=== PATIENT | female | born 1990 | race Caucasian/White ===

== ENCOUNTER 2021-08-25 10:26 | Inpatient (IN) | payer MEDICAID, OTHER ==
[~2021-08-25] VITALS: Ht 162.6 cm; Wt 74.8 kg
[2021-08-25] MEDS ORDERED: SODIUM CHLORIDE 0.9% 1,000 ML IV ONE (10:45)
[2021-08-25 11:17] LABS: CLARITY URINE CLEAR (CLEAR); COLOR URINE YELLOW (YELLOW); KETONES URINE NEGATIVE (NEGATIVE); LEUKOCYTE ESTERASE URINE NEGATIVE (NEGATIVE); NITRITE URINE NEGATIVE (NEGATIVE); OCCULT BLOOD URINE 2+ (NEGATIVE); PH URINE 8.5 (4.5-8.0); PROTEIN URINE NEGATIVE (NEGATIVE); SPECIFIC GRAVITY URINE 1.013 (1.005-1.030); UROBILINOGEN URINE 0.2 E.U./dL (0.2-1.0)
[2021-08-25 11:37] LABS: CHLORIDE 105 mEq/L (98-107)
[2021-08-25 11:39] LABS: BASOPHILS % 0.6 % (0.0-2.0); EOSINOPHILS % 0.4 % (0.0-5.0); HEMOGLOBIN. 12.5 g/dL (12.0-16.0); LYMPHOCYTES % 18.2 % (20.0-50.0); MEAN CORPUSCULAR HEMOGLOBIN 30.8 pg (28.0-32.0); MEAN CORPUSCULAR VOLUME 88.2 fL (81.0-99.0); MEAN PLATELET VOLUME 9.9 fl (7.4-10.4); MONOCYTES % 5.1 % (2.0-8.0); NEUTROPHILS % 75.7 % (40.0-76.0); PLATELET 266 x1000/uL (130-400); RED BLOOD CELL COUNT 4.08 mill/uL (4.2-5.4); RED CELL DISTRIBUTION WIDTH 13.6 % (11.6-14.6)
[2021-08-25 12:00] LABS: B-HCG QUANTITATIVE 29950 mIU/mL (<3)
[2021-08-25 12:06] LABS: PROTHROMBIN TIME 10.7 sec (9.6-11.0)
[2021-08-25] MEDS ORDERED: ROCURONIUM BROMIDE 10MG/ML VIAL 5ML IV ONE (15:22)
[2021-08-25] MEDS ORDERED: NEOSTIGMINE METHYLSULFATE 1MG/ML 10 ML VIAL ONE (15:22)
[2021-08-25] MEDS ORDERED: FENTANYL CITRATE/PF 50MCG/ML 2ML VIAL ONE (15:22)
[2021-08-25] MEDS ORDERED: GLYCOPYRROLATE 0.2 MG/ML 2ML VIAL ONE ×2 (15:23→16:41)
[2021-08-25] MEDS ORDERED: MIDAZOLAM HCL 2 MG/2 ML VIAL ONE (15:23)
[2021-08-25] MEDS ORDERED: PROPOFOL 200MG/20ML VIAL IV ONE (15:23)
[2021-08-25] MEDS ORDERED: MEPERIDINE HCL/PF 25MG/ML CPJ IV PRN (15:30)
[2021-08-25] MEDS ORDERED: HYDROMORPHONE HCL/PF 2MG/ML CPJ IV PRN (15:30)
[2021-08-25] MEDS ORDERED: ONDANSETRON HCL 4MG/2ML INJ IV PRN ×2 (15:30→17:00)
[2021-08-25] MEDS ORDERED: LABETALOL 5MG/ML SYR 20 MG/4 ML SYRINGE IV PRN (15:30)
[2021-08-25] MEDS ORDERED: DEXAMETHASONE 4MG/ML 1ML VIAL ONE (15:30)
[2021-08-25] MEDS ORDERED: ONDANSETRON HCL 4MG/2ML INJ ONE ×2 (15:30→18:04)
[2021-08-25] MEDS ORDERED: MORPHINE SULFATE 4 MG/ML CPJ (NOT FOR IM USE) IV PRN (17:00)
[2021-08-25] MEDS ORDERED: HYDROMORPHONE HCL/PF 2MG/ML CPJ ONE (18:04)
[2021-08-25 21:00] VITALS: BP 96/57
[2021-08-25] MEDS ORDERED: NALOXONE HCL 0.4MG/ML VIAL IV PRN (21:15)
[2021-08-25] MEDS: LACTATED RINGERS 1,000 ML IV SCH (21:21)
[2021-08-25] MEDS: MORPHINE SULFATE 2 MG/ML CPJ (NOT FOR IM USE) IV PRN (21:38)
[2021-08-26] VITALS: BP 94/59
[2021-08-26 04:00] VITALS: BP 90/57
[2021-08-26] MEDS: LACTATED RINGERS 1,000 ML IV SCH ×3 (04:35→21:08)
[2021-08-26] MEDS: MORPHINE SULFATE 2 MG/ML CPJ (NOT FOR IM USE) IV PRN (04:51)
[2021-08-26] MEDS ORDERED: IBUPROFEN 800MG TABLET PO PRN (07:45)
[2021-08-26 08:00] VITALS: BP 100/58
[2021-08-26] MEDS: HYDROCODONE/ACETAMINOPHEN 5/325MG TABLET PO PRN ×3 (09:42→21:16)
[2021-08-26 12:00] VITALS: BP 94/57
[2021-08-26 16:00] VITALS: BP 105/62
[2021-08-26 17:31] LABS: BASOPHILS % 0.4 % (0.0-2.0); EOSINOPHILS % 0.4 % (0.0-5.0); HEMOGLOBIN. 11.3 g/dL (12.0-16.0); LYMPHOCYTES % 23.7 % (20.0-50.0); MEAN CORPUSCULAR HEMOGLOBIN 29.9 pg (28.0-32.0); MEAN CORPUSCULAR VOLUME 89.6 fL (81.0-99.0); MEAN PLATELET VOLUME 10.6 fl (7.4-10.4); MONOCYTES % 5.8 % (2.0-8.0); NEUTROPHILS % 69.7 % (40.0-76.0); PLATELET 269 x1000/uL (130-400); RED CELL DISTRIBUTION WIDTH 13.6 % (11.6-14.6)
[2021-08-26 20:00] VITALS: BP 101/51
[2021-08-27] VITALS: BP 83/40
[2021-08-27 04:00] VITALS: BP 94/62
[2021-08-27] MEDS: LACTATED RINGERS 1,000 ML IV SCH ×3 (05:06→21:00)
[2021-08-27 08:00] VITALS: BP 96/60
[2021-08-27] MEDS: HYDROCODONE/ACETAMINOPHEN 5/325MG TABLET PO PRN (10:31)
[2021-08-27 12:00] VITALS: BP 104/69
[2021-08-27 16:00] VITALS: BP 99/67
[2021-08-27 20:00] VITALS: BP 98/67
[2021-08-28] VITALS: BP 103/61
[2021-08-28 04:00] VITALS: BP 100/61
[2021-08-28] MEDS: LACTATED RINGERS 1,000 ML IV SCH (05:00)
[2021-08-28 08:00] VITALS: BP 103/69
[2021-08-28 12:00] VITALS: BP 105/70
[2021-08-28] MEDS ORDERED: MULT-1116 MT (12:10)
[2021-08-28] MEDS ORDERED: FERR325T6 MT (12:10)
[2021-08-28] MEDS ORDERED: IBUP-2030 PO (12:10)
[2021-08-28 13:30] VITALS: BP 103/69
== END 2021-08-28 14:46 | disposition home or self-care (01) | DRG 547 ==
LOC: ER 10:26 → 6EST 12:15 → ER 15:39 → SUPCPDRO 16:52 → CANBEDREQ 17:15 → 6EST 20:53
PROVIDERS: ADMIT Obstetrics & Gynecology; ATTEND Obstetrics & Gynecology
PROC: 0UB60ZZ Excision of Left Fallopian Tube, Open Approach (ICD-10-PCS; principal; 2021-08-25)
DX: O00.102 Left tubal pregnancy without intrauterine pregnancy (principal); K66.1 Hemoperitoneum; M54.50 Low back pain, unspecified; O26.899 Other specified pregnancy related conditions, unspecified trimester; Z20.822 Contact with and (suspected) exposure to COVID-19
CPT/HCPCS: 36415; 76801; 80053; 81003; 84702; 85025; 86850; 86900; 87426; 88305; 99285; J1100; J1170; J2250; J2270; J2405; J2704; J2710; J3010; J3490; J7030; J7120

== ENCOUNTER 2021-08-31 18:38 | Emergency (ER) | payer MEDICAID ==
[~2021-08-31] VITALS: Ht 162.6 cm; Wt 80.0 kg
[~2021-08-31 18:38] MED LIST: FERR325T6 MT; IBUP-2030 PO; MULT-1116 MT
[2021-08-31 23:51] LABS: BASOPHILS % 0.8 % (0.0-2.0); EOSINOPHILS % 2.3 % (0.0-5.0); HEMOGLOBIN. 11.9 g/dL (12.0-16.0); LYMPHOCYTES % 28.9 % (20.0-50.0); MEAN CORPUSCULAR HEMOGLOBIN 30.6 pg (28.0-32.0); MEAN CORPUSCULAR VOLUME 89.8 fL (81.0-99.0); MEAN PLATELET VOLUME 9.7 fl (7.4-10.4); MONOCYTES % 3.8 % (2.0-8.0); NEUTROPHILS % 64.2 % (40.0-76.0); PLATELET 335 x1000/uL (130-400); RED CELL DISTRIBUTION WIDTH 13.3 % (11.6-14.6)
[2021-09-01 00:08] LABS: CHLORIDE 108 mEq/L (98-107)
[2021-09-01 00:21] LABS: B-HCG QUANTITATIVE 454 mIU/mL (<3)
[2021-09-01 03:20] VITALS: BP 129/78
[2021-09-01] MEDS ORDERED: IOHEXOL-350 100 ML BOTTLE ONE (03:31)
== END 2021-09-01 03:41 | disposition home or self-care (01) ==
LOC: ER 18:38
DX: D64.9 Anemia, unspecified (principal); F41.9 Anxiety disorder, unspecified; R00.2 Palpitations; Z98.890 Other specified postprocedural states
CPT/HCPCS: 36415; 71275; 80053; 84702; 85025; 85379; 86850; 86900; 86901; 99285; Q9967; 99284

== ENCOUNTER 2023-12-12 08:47 | Emergency (ER) | payer MEDICAID ==
[~2023-12-12] VITALS: Ht 157.5 cm; Wt 81.6 kg
[2023-12-12 09:15] VITALS: O2SAT 100
[2023-12-12 10:02] LABS: CLARITY URINE CLEAR (CLEAR); COLOR URINE YELLOW (YELLOW); GLUCOSE URINE NEGATIVE (NEGATIVE); KETONES URINE NEGATIVE (NEGATIVE); LEUKOCYTE ESTERASE URINE NEGATIVE (NEGATIVE); NITRITE URINE NEGATIVE (NEGATIVE); OCCULT BLOOD URINE TRACE (NEGATIVE); PH URINE 6.5 (4.5-8.0); PROTEIN URINE NEGATIVE (NEGATIVE); SPECIFIC GRAVITY URINE 1.005 (1.005-1.030); UROBILINOGEN URINE 0.2 E.U./dL (0.2-1.0)
[2023-12-12] MEDS ORDERED: PHEN-815 MT (10:47)
[2023-12-12 11:15] VITALS: BP 121/78; PULSE 79; RESP 16; TEMP 98.1
[2023-12-12 12:15] LABS: BACTERIA URINE TRACE; RBC URINE 0-2 /hpf (0-2); SQUAMOUS EPITHELIAL CELL URINE 1+ /lpf (RARE/1+); WBC URINE NONE SEEN /hpf (0-2)
== END 2023-12-12 11:17 | disposition home or self-care (01) ==
LOC: ER 08:47
DX: R30.0 Dysuria (principal)
CPT/HCPCS: 81003; 81025; 99283

== ENCOUNTER 2024-06-16 14:58 | Emergency (ER) | payer MEDICAID ==
[~2024-06-16] VITALS: Ht 165.1 cm; Wt 82.0 kg
[~2024-06-16 14:58] MED LIST changes: +PHEN-815 MT
[2024-06-16 15:00] VITALS: BP 132/82; PULSE 95; TEMP 98.6; O2SAT 100
[2024-06-16 17:12] LABS: CLARITY URINE CLEAR (CLEAR); COLOR URINE YELLOW (YELLOW); GLUCOSE URINE NEGATIVE (NEGATIVE); KETONES URINE NEGATIVE (NEGATIVE); LEUKOCYTE ESTERASE URINE NEGATIVE (NEGATIVE); NITRITE URINE NEGATIVE (NEGATIVE); OCCULT BLOOD URINE NEGATIVE (NEGATIVE); PH URINE 6.5 (4.5-8.0); PROTEIN URINE NEGATIVE (NEGATIVE); SPECIFIC GRAVITY URINE 1.005 (1.005-1.030); UROBILINOGEN URINE 0.2 E.U./dL (0.2-1.0)
[2024-06-16 17:15] LABS: BASOPHILS % 0.4 % (0.0-2.0); HEMATOCRIT. 36.1 % (36.0-48.0); HEMOGLOBIN. 12.1 g/dL (12.0-16.0); LYMPHOCYTES % 18.9 % (20.0-50.0); MEAN CORPUSCULAR HGB CONC 33.4 g/dL (31.0-37.0); MEAN CORPUSCULAR VOLUME 89.8 fL (81.0-99.0); MEAN PLATELET VOLUME 9.7 fl (7.4-10.4); MONOCYTES % 5.6 % (2.0-8.0); NEUTROPHILS % 74.1 % (40.0-76.0); PLATELET 268 x1000/uL (130-400); RED BLOOD CELL COUNT 4.02 mill/uL (4.2-5.4); RED CELL DISTRIBUTION WIDTH 13.3 % (11.6-14.6); WHITE BLOOD COUNT 10.7 x1000/uL (4.5-11.0)
[2024-06-16 17:23] LABS: CHLORIDE 106 mEq/L (98-107); POTASSIUM 3.6 mEq/L (3.5-5.1); SODIUM 137 mEq/L (136-145)
[2024-06-16 17:24] LABS: CALCIUM 9.7 mg/dL (8.7-10.4); CARBON DIOXIDE 22 mEq/L (21-32)
[2024-06-16 17:29] LABS: CREATININE 0.5 mg/dL (0.6-1.0); GLUCOSE 95 mg/dL (70-105)
[2024-06-16 17:31] LABS: ALANINE AMINOTRANSFERASE 11 IU/L (10-49); ALBUMIN 4.7 g/dL (3.2-4.8); ASPARTATE AMINOTRANSFERASE 12 IU/L (<34); BILIRUBIN TOTAL 0.3 mg/dL (0.1-1.0); PROTEIN TOTAL 7.3 g/dL (6.0-8.3)
[2024-06-16 17:32] LABS: UREA NITROGEN BLOOD < 5 mg/dL (9-23)
[2024-06-16 17:48] LABS: B-HCG QUANTITATIVE 57352 mIU/mL (<3)
[2024-06-16] MEDS ORDERED: PREN1COM16 MT (18:00)
== END 2024-06-16 17:12 | disposition home or self-care (01) ==
LOC: ER 14:58
DX: O26.891 Other specified pregnancy related conditions, first trimester (principal); R10.30 Lower abdominal pain, unspecified; Z3A.09 9 weeks gestation of pregnancy
CPT/HCPCS: 36415; 76801; 80053; 81003; 84702; 85025; 86850; 86900; 99284